=== PATIENT | male | born 1965 | race African-American/Black ===

== ENCOUNTER 2020-10-10 12:17 | Emergency (ER) | payer MEDICAID, OTHER ==
[~2020-10-10] VITALS: Ht 182.9 cm; Wt 100.0 kg
[2020-10-10] MEDS ORDERED: IBUPROFEN 800MG TABLET PO ONE (12:45)
[2020-10-10 14:18] VITALS: BP 127/80
== END 2020-10-10 14:20 | disposition home or self-care (01) ==
LOC: ER 12:32
DX: M79.18 Myalgia, other site (principal)
CPT/HCPCS: 71045; 99283